=== PATIENT | female | born 1985 | race Caucasian/White ===

== ENCOUNTER → 2021-03-04 | Day surgery (SDC) | payer OTHER ==
[~2021-03-04] MED LIST: ANTIVERT25 MG PO; IBUPROFEN800 M1 PO; MOTRIN600 MG PO; ZYRTEC10 MG PO
[2021-03-04 08:58] LABS: HCT 39.7 % (37.0-47.0); HGB 13.4 g/dl (12.5-16.0); MCH 30.7 pg (25.0-31.0); MCHC 33.8 g/dL (32.0-36.0); MCV 90.8 fL (78.0-100.0); MPV 9.9 fL (6.0-9.5); RBC 4.37 M/uL (4.20-5.40); WBC 5.7 K/uL (4.0-10.5)
== END | disposition home or self-care (01) ==
LOC: FAS 07:54
PROVIDERS: Obstetrics & Gynecology
DX: O03.4 Incomplete spontaneous abortion without complication (principal); N85.8 Other specified noninflammatory disorders of uterus; I10 Essential (primary) hypertension; E78.5 Hyperlipidemia, unspecified; F17.210 Nicotine dependence, cigarettes, uncomplicated; Z30.09 Encounter for other general counseling and advice on contraception; Z82.49 Family history of ischemic heart disease and other diseases of the circulatory system; Z20.822 Contact with and (suspected) exposure to COVID-19; Z88.8 Allergy status to other drugs, medicaments and biological substances
CPT/HCPCS: 36415; 86850; 86900; 86901; 93005; J2250; J2704; J3010; J7050; J7120